=== PATIENT | female | born 1950 | race African-American/Black ===

== ENCOUNTER 2020-05-21 06:06 | Day surgery (SDC) | payer BC ==
[~2020-05-21] VITALS: Ht 162.6 cm; Wt 79.4 kg
[2020-05-21 06:36] VITALS: BP 139/75
[2020-05-21 09:27] VITALS: BP 137/80
== END 2020-05-21 09:25 | disposition home or self-care (01) ==
LOC: DS 06:06 → OR 07:30 → DS 09:25
PROVIDERS: ATTEND Internal Medicine
DX: K92.1 Melena (principal); K21.9 Gastro-esophageal reflux disease without esophagitis; K57.30 Diverticulosis of large intestine without perforation or abscess without bleeding; K29.50 Unspecified chronic gastritis without bleeding; E66.9 Obesity, unspecified; M19.90 Unspecified osteoarthritis, unspecified site; H40.9 Unspecified glaucoma; Z68.30 Body mass index [BMI] 30.0-30.9, adult; Z87.11 Personal history of peptic ulcer disease; Z83.3 Family history of diabetes mellitus; Z82.49 Family history of ischemic heart disease and other diseases of the circulatory system; Z79.82 Long term (current) use of aspirin
CPT/HCPCS: 43235; 45378; J1200; J1610; J2250; J2310; J3010; J3490